=== PATIENT | female | born 1960 | race Caucasian/White ===

== ENCOUNTER 2021-08-28 10:27 | Outpatient (REF) | payer OTHER, SELFPAY ==
[2021-08-28 12:46] LABS: Alanine Aminotransferase 37 U/L (0-31); Albumin Level 4.6 g/dL (3.5-5.0); Alkaline Phosphatase 59 U/L (39-117); Anion Gap 12 (12-20); Aspartate Amino Transferase 26 U/L (5-31); Bilirubin Total 0.5 mg/dL (0.0-1.0); Blood Urea Nitrogen 16 mg/dL (9-16); Calcium 10.7 mg/dL (8.4-10.2); Carbon Dioxide 26 mmol/L (22-29); Chloride 105 mmol/L (96-108); Estimated Glomerular Filt Rate > 60; Glucose Random 144 mg/dL (60-115); Potassium 4.6 mmol/L (3.3-5.1); Sodium 138 mmol/L (135-145); Total Protein 7.1 g/dL (6.5-8.0)
[2021-08-28 13:12] LABS: Estimated Average Glucose 137 mg/dL; Hemoglobin A1c % 6.4 %
== END 2021-08-28 10:28 | disposition home or self-care (01) ==
LOC: HO.10HDL 10:27
PROVIDERS: Visit Provider Internal Medicine
DX: F41.8 Other specified anxiety disorders (principal); I10 Essential (primary) hypertension; K91.5 Postcholecystectomy syndrome; R73.01 Impaired fasting glucose
CPT/HCPCS: 36415; 80053; 83036

== ENCOUNTER 2021-09-18 07:06 | Day surgery (SDC) | payer OTHER, SELFPAY ==
[2021-09-12 13:50] VITALS: BMI 34.2
--- NOTE | 2021-09-15 08:51 | HO.ANESPROP2 ---
Documented by User: Ida Smith NP 09/15/21 08:53 HPI - Anesthesia Eval Consult details Narrative: 61yo F for Left Cataract Extraction IOL Insertion PCP cleared No previous cataract on record [facility] Past Medical History Medical History (Updated 09/18/21 @ 07:43 by Joan Espino, RN) Anxiety HTN (hypertension) Hx of lipoma Pre-diabetes Surgical History Surgical History Hx of cholecystectomy Hx of colonoscopy Hx of hand surgery Hx of removal of neck cyst Surgical history unknown Social History Social History Patient Tobacco Use Status: Tobacco use Unknown Advance Directives: No Advance Directives Information Provided: Yes (brochure mailed) Advance Directives on File: No Meds Allergies Allergy/AdvReac Type Severity Reaction Status Date / Time erythromycin base Allergy Rash Verified 09/18/21 07:43 Home Medications Medication Instructions Recorded Confirmed Last Taken Type cholestyramine (with sugar) 4 gram 1 packet PO BID 09/12/21 09/12/21 Unknown History powder for susp in a packet fluoxetine 10 mg capsule 1 cap PO DAILY 09/12/21 09/12/21 Unknown History losartan 100 mg tablet 1 tab PO DAILY 09/12/21 09/12/21 Unknown History Exam Exam Date and Time: September 15, 2021 0851 Height,Weight and Vital Signs: Height 5 ft 5 in Weight 93.44 kg Assessment and Plan Assessment Anesthesia Assessment: Chart Reviewed Documented by User: Cliff Prather MD 09/18/21 07:53 [facility] Past Medical History Medical History (Updated 09/18/21 @ 07:43 by Joan Espino RN) Anxiety HTN (hypertension) Hx of lipoma Pre-diabetes Family History Family history of problems with anesthesia: No Surgical History Surgical History Hx of cholecystectomy Hx of colonoscopy Hx of hand surgery Hx of removal of neck cyst Surgical history unknown History of Problems with Anesthesia: No Social History Social History Patient Tobacco Use Status: Tobacco use Unknown Advance Directives: No Advance Directives Information Provided: Yes (brochure mailed) Advance Directives on File: No Meds Allergies Allergy/AdvReac Type Severity Reaction Status Date / Time erythromycin base Allergy Rash Verified 09/18/21 07:43 Home Medications Medication Instructions Recorded Confirmed Last Taken Type cholestyramine (with sugar) 4 gram 1 packet PO BID 09/12/21 09/12/21 Unknown History powder for susp in a packet fluoxetine 10 mg capsule 1 cap PO DAILY 09/12/21 09/12/21 Unknown History losartan 100 mg tablet 1 tab PO DAILY 09/12/21 09/12/21 Unknown History Exam Airway Mallampati Class: II TM Dist: >3cm Neck ROM: Full Loose/Missing/Broken Teeth: No Heart: rrr +s1s2 Lungs: cta b/l Assessment and Plan Assessment Anesthesia Assessment: Anesthesia Plan Discussed Final Anesthetic Review Family History of Problems with Anesthesia: No History of Problems with Anesthesia: No NPO: Yes ASA Class: II Final Preanesthetic Review: No Changes in Pt Med Stat, Meds/Allgs Chart Reviewed, Consent Obtained/Reviewed and Anes Risks/Benef Reviewed Patient Risk: Intermediate Procedure Risk: Low Assessment/Block/Sedation in SS: Assess/Block/Sedation-SS Anesthetic Plan Anesthetic Plan: MAC: and Agree w/ Assess. and Plan Disposition: Standard PACU
--- NOTE | 2021-09-15 11:36 | MHC.SHP ---
Pre-Procedural Eval Section A Date of Service: 09/15/21 The patient is an INPATIENT: No Changes since office visit: No Cold of Flu in the past 2 weeks, No New Medical Problems, No Changes in Medication and No Patient answered all questions The History & Physical has been completed within 30 days and I have reviewed it.: Yes Section B Chief Complaint: cataract Allergies: Allergies Allergy/AdvReac Type Severity Reaction Status Date / Time No Known Allergies Allergy Verified 09/12/21 13:48 Plan Diagnosis/Plan: Unchanged I have reviewed the history and physical and performed a pertinent physical examination on my patient. No changes have occurred unless specified.
[2021-09-18 07:53] VITALS: BP 143/81; PULSE 78; RESP 16; TEMP 36.3; O2SAT 98
[2021-09-18] MEDS: Tetracaine HCl/PF 0.5% Oph Sol 4 ML DROPS 1 DROP EYE-LEFT (07:58)
[2021-09-18] MEDS: Tropicamide 1 % Ophth Sol 3 ML BTL 1 DROP EYE-LEFT ×3 (08:01→08:09)
[2021-09-18] MEDS: Phenylephrine HCL 2.5% Oph SoL 2 ML BOTTLE 1 DROP EYE-LEFT ×3 (08:03→08:11)
[2021-09-18] MEDS: Lactated Ringers 500 ML 50 ML IV (08:07)
--- NOTE | 2021-09-18 08:42 | HO.PNOPHT ---
Ophthalmology Procedure Procedure Date of Service: 09/18/21 Ophthalmology Viscoelastic: Healkirill Bucknert Dual Pack Pro Ophthalmology Lenses: TECRONIT [id number] (21.5) Procedure Notes: PREOPERATIVE DIAGNOSIS: Decreased visual acuity left eye secondary to cataract POSTOPERATIVE DIAGNOSIS: Same PROCEDURE: Left cataract extraction with intraocular lens insertion SURGEON: Efraín Tinajero M.D. ANESTHESIA: Topical/MAC ESTIMATED BLOOD LOSS: None COMPLICATIONS: None After obtaining informed consent, the patient was brought to the operation room suite and placed in the supine position. After adequate sedation per anesthesia, topical drops of Tetracaine were given to the left eye. The eye was then prepped and draped in the usual sterile fashion. The operating room microscope was then positioned over the operative eye and a lid speculum placed. A paracentesis was created. Viscoelastic was then instilled into the anterior chamber. A three plane incision was then created temporally, utilizing a 2.85 mm keratome. Capsulotomy forceps were then utilized to create a circular tear capsulotomy. Hydrodissection and hydrodelineation were carried out until adequate mobilization of the nucleus occurred. Phacoemulsification was then utilized to remove the dense central nucleus followed by removal of the cortical material utilizing the automated aspiration irrigation unit. Viscoat elastic was instilled into the posterior capsular bag followed by placement of a posterior chamber intraocular lens without difficulty. The residual Viscoat elastic was then removed utilizing the automated IA machine. The wound was check and found to be watertight. The patient tolerated the procedure well and the lid speculum was removed. Intracameral injection of Vigamox 0.1 mL followed by a subtenon injection of Kenalog-40 0.2 mL were administered. The patient will be seen in the a.m.
[2021-09-18 09:08] VITALS: BP 136/72; PULSE 81; RESP 18; TEMP 36.2; O2SAT 97
== END 2021-09-18 09:11 | disposition home or self-care (01) ==
PROVIDERS: PCP Internal Medicine; Visit Provider Ophthalmology
PROC: (CPT 66985; principal; 2021-09-18 08:50)
DX: H25.12 Age-related nuclear cataract, left eye (principal); H54.7 Unspecified visual loss; I10 Essential (primary) hypertension; F41.1 Generalized anxiety disorder; Z79.899 Other long term (current) drug therapy; Z88.1 Allergy status to other antibiotic agents
CPT/HCPCS: 66984; J2250; J3010; J3300; V2632

== ENCOUNTER 2021-10-09 06:20 | Day surgery (SDC) | payer OTHER, SELFPAY ==
[2021-09-12 13:52] VITALS: BMI 34.2
--- NOTE | 2021-10-05 08:00 | MHC.SHP ---
Pre-Procedural Eval Section A Date of Service: 10/05/21 The patient is an INPATIENT: No Changes since office visit: No Cold of Flu in the past 2 weeks, No New Medical Problems, No Changes in Medication and No Patient answered all questions The History & Physical has been completed within 30 days and I have reviewed it.: Yes Section B Chief Complaint: cataract Allergies: Allergies Allergy/AdvReac Type Severity Reaction Status Date / Time erythromycin base Allergy Rash Verified 09/18/21 07:43 Plan Diagnosis/Plan: Unchanged I have reviewed the history and physical and performed a pertinent physical examination on my patient. No changes have occurred unless specified.
--- NOTE | 2021-10-05 11:51 | P.CONAN_ITS ---
Documented by User: Ida Smith NP 10/05/21 11:51 HPI - Anesthesia Eval Consult details Narrative: 61yo F for Right Cataract Extraction IOL Insertion PCP cleared Left eye 09/2021 with MAC: fent 50, midaz 2 [facility] Past Medical History Medical History (Updated 09/18/21 @ 07:43 by Joan Espino, RN) Anxiety HTN (hypertension) Hx of lipoma Pre-diabetes Family History Family history of problems with anesthesia: No Surgical History Surgical History Hx of cholecystectomy Hx of colonoscopy Hx of hand surgery Hx of removal of neck cyst Surgical history unknown History of Problems with Anesthesia: No Social History Social History Patient Tobacco Use Status: Tobacco use Unknown Advance Directives: No Advance Directives Information Provided: Yes (brochure mailed) Advance Directives on File: No Meds Allergies Allergy/AdvReac Type Severity Reaction Status Date / Time erythromycin base Allergy Rash Verified 09/18/21 07:43 Home Medications Medication Instructions Recorded Confirmed Last Taken Type cholestyramine (with sugar) 4 gram 1 packet PO BID 09/12/21 09/12/21 Unknown History powder for susp in a packet fluoxetine 10 mg capsule 1 cap PO DAILY 09/12/21 09/12/21 09/18/21 05:45 History losartan 100 mg tablet 1 tab PO DAILY 09/12/21 09/12/21 Unknown History Exam Exam Date and Time: October 05, 2021 1151 Height,Weight and Vital Signs: Height 5 ft 5 in Weight 93.44 kg Assessment and Plan Assessment Anesthesia Assessment: Chart Reviewed Final Anesthetic Review Family History of Problems with Anesthesia: No History of Problems with Anesthesia: No Documented by User: Cliff Prather MD 10/08/21 11:59 [facility] Past Medical History Medical History (Updated 09/18/21 @ 07:43 by Joan Espino RN) Anxiety HTN (hypertension) Hx of lipoma Pre-diabetes Surgical History Surgical History Hx of cholecystectomy Hx of colonoscopy Hx of hand surgery Hx of removal of neck cyst Surgical history unknown Social History Social History Patient Tobacco Use Status: Tobacco use Unknown Advance Directives: No Advance Directives Information Provided: Yes (brochure mailed) Advance Directives on File: No Meds Allergies Allergy/AdvReac Type Severity Reaction Status Date / Time erythromycin base Allergy Rash Verified 09/18/21 07:43 Home Medications Medication Instructions Recorded Confirmed Last Taken Type cholestyramine (with sugar) 4 gram 1 packet PO BID 09/12/21 09/12/21 Unknown History powder for susp in a packet fluoxetine 10 mg capsule 1 cap PO DAILY 09/12/21 09/12/21 09/18/21 05:45 History losartan 100 mg tablet 1 tab PO DAILY 09/12/21 09/12/21 Unknown History Exam Airway Mallampati Class: II TM Dist: >3cm Neck ROM: Full Loose/Missing/Broken Teeth: No Heart: rrr+s1s2 Lungs: cta b/l Assessment and Plan Assessment Anesthesia Assessment: Anesthesia Plan Discussed Final Anesthetic Review NPO: Yes ASA Class: II Final Preanesthetic Review: No Changes in Pt Med Stat, Meds/Allgs Chart Reviewed, Consent Obtained/Reviewed and Anes Risks/Benef Reviewed Patient Risk: Intermediate Procedure Risk: Low Assessment/Block/Sedation in SS: Assess/Block/Sedation-SS Anesthetic Plan Anesthetic Plan: MAC: Disposition: Standard PACU
[2021-10-09 06:21] VITALS: BP 130/76; PULSE 86; RESP 16; TEMP 36.5; O2SAT 95
[2021-10-09] MEDS: Tetracaine HCl/PF 0.5% Oph Sol 4 ML DROPS 1 DROP EYE-RIGHT (06:35)
[2021-10-09] MEDS: Tropicamide 1 % Ophth Sol 3 ML BTL 1 DROP EYE-RIGHT ×3 (06:43→06:50)
[2021-10-09] MEDS: Lactated Ringers 500 ML 50 ML IV (06:43)
[2021-10-09] MEDS: Phenylephrine HCL 2.5% Oph SoL 2 ML BOTTLE 1 DROP EYE-RIGHT ×3 (06:46→06:53)
--- NOTE | 2021-10-09 07:46 | HO.PNOPHT ---
Ophthalmology Procedure Procedure Date of Service: 10/09/21 Ophthalmology Viscoelastic: Zuhair Bucknert Dual Pack Pro Ophthalmology Lenses: TECRONIT [id number] (21) Procedure Notes: PREOPERATIVE DIAGNOSIS: Decreased visual acuity right eye secondary to cataract POSTOPERATIVE DIAGNOSIS: Same PROCEDURE: Right cataract extraction with intraocular lens insertion SURGEON: Efraín Tinajero M.D. ANESTHESIA: Topical/MAC ESTIMATED BLOOD LOSS: None COMPLICATIONS: None After obtaining informed consent, the patient was brought to the operating room suite and placed in the supine position. After adequate sedation per anesthesia, topical drops of Tetracaine were given to the right eye. The eye was then prepped and draped in the usual sterile fashion. The operating room microscope was then positioned over the operative eye and a lid speculum placed. A paracentesis was created. Viscoelastic was then instilled into the anterior chamber. A three plane incision was then created temporally, utilizing a 2.85 mm keratome. Capsulotomy forceps were then utilized to create a circular tear capsulotomy. Hydrodissection and hydrodelineation were carried out until adequate mobilization of the nucleus occurred. Phacoemulsification was then utilized to remove the dense central nucleus followed by removal of the cortical material utilizing the automated aspiration irrigation unit. Viscoelastic was instilled into the posterior capsular bag followed by placement of a posterior chamber intraocular lens without difficulty. The residual Viscoelastic was then removed utilizing the automated IA machine. The wound was checked and found to be watertight. The patient tolerated the procedure well and the lid speculum was removed. Intracameral injection of Vigamox 0.1 mL followed by a subtenon injection of Kenalog-40 0.2 mL were administered. The patient will be seen in the a.m.
[2021-10-09 08:06] VITALS: BP 125/72; PULSE 88; RESP 16; TEMP 36.2; O2SAT 96
== END 2021-10-09 08:24 | disposition home or self-care (01) ==
PROVIDERS: PCP Internal Medicine; Visit Provider Ophthalmology
PROC: (CPT 66985; principal; 2021-10-09 08:00)
DX: H25.11 Age-related nuclear cataract, right eye (principal); H54.7 Unspecified visual loss; I10 Essential (primary) hypertension; Z79.899 Other long term (current) drug therapy; Z88.1 Allergy status to other antibiotic agents
CPT/HCPCS: 66984; J2250; J3010; J3300; V2632

== ENCOUNTER 2021-11-15 08:13 | Outpatient (REF) | payer OTHER, SELFPAY ==
[2021-11-15 10:18] LABS: MANUAL DIFF FLAG NO
[2021-11-15 10:24] LABS: Basophils Percent Auto 0.5 % (0-2); Eosinophils Absolute Auto 0.1 X10*3/uL (0.0-0.4); Eosinophils Percent Auto 1.1 % (0-4); Hematocrit 39.7 % (37.0-47.0); Hemoglobin 12.7 g/dl (12.0-16.0); Imm Gran Abs Auto 0.05 X10*3/uL (0.00-0.03); Imm Gran Pct Auto 0.7 % (0.0-0.4); Lymphocytes Absolute Auto 1.6 X10*3/uL (1.2-4.9); Mean Corpuscular Hemoglobin 29.3 pg (27.0-33.0); Mean Corpuscular Volume 91.7 fL (80.0-98.0); Mean Platelet Volume 9.2 fL (9.4-12.3); Monocytes Absolute Auto 0.6 X10*3/uL (0.1-1.2); Monocytes Percent Auto 8.3 % (2-11); Neutrophils Percent Auto 67.4 % (45-73); Platelet Count 218 X10*3/uL (160-400); Red Blood Count 4.33 X10*6/uL (4.20-5.50); Red Cell Distribution Width 13.2 % (11.0-16.0); White Blood Count 7.4 X10*3/uL (4.8-10.8)
[2021-11-15 10:46] LABS: Estimated Average Glucose 126 mg/dL
[2021-11-15 10:49] LABS: Alanine Aminotransferase 30 U/L (0-31); Albumin Level 4.4 g/dL (3.5-5.0); Alkaline Phosphatase 65 U/L (39-117); Anion Gap 14 (12-20); Aspartate Amino Transferase 19 U/L (5-31); Bilirubin Total 0.4 mg/dL (0.0-1.0); Blood Urea Nitrogen 17 mg/dL (9-16); Calcium 9.6 mg/dL (8.4-10.2); Carbon Dioxide 24 mmol/L (22-29); Chloride 109 mmol/L (96-108); Cholesterol 199 mg/dL; Estimated Glomerular Filt Rate > 60; Glucose Fasting 132 mg/dL (60-99); HDL Cholesterol 47 mg/dL; LDL Cholesterol Calculated 112 mg/dl; Potassium 4.6 mmol/L (3.3-5.1); Sodium 142 mmol/L (135-145); Total Protein 6.7 g/dL (6.5-8.0); Triglycerides 203 mg/dL
[2021-11-16 12:42] LABS: Calcium (PTHI) 9.4 mg/dL (8.6-10.4); PTHI 38 pg/mL (16-77)
== END 2021-11-15 08:14 | disposition home or self-care (01) ==
LOC: HO.10HDL 08:13
PROVIDERS: Absent Provider Internal Medicine; Visit Provider Internal Medicine
DX: E83.52 Hypercalcemia (principal); I10 Essential (primary) hypertension; K91.5 Postcholecystectomy syndrome; R73.01 Impaired fasting glucose
CPT/HCPCS: 36415; 80053; 80061; 82306; 83036; 83970; 85025

== ENCOUNTER 2022-02-09 09:00 | Outpatient (REF) | payer OTHER, SELFPAY ==
[2022-02-09 10:42] LABS: Estimated Average Glucose 123 mg/dL; Hemoglobin A1c % 5.9 %
[2022-02-09 10:51] LABS: Alanine Aminotransferase 38 U/L (0-31); Albumin Level 4.6 g/dL (3.5-5.0); Alkaline Phosphatase 55 U/L (39-117); Anion Gap 18 (12-20); Aspartate Amino Transferase 26 U/L (5-31); Bilirubin Total 0.4 mg/dL (0.0-1.0); Blood Urea Nitrogen 12 mg/dL (9-16); Carbon Dioxide 24 mmol/L (22-29); Chloride 106 mmol/L (96-108); Cholesterol 180 mg/dL; Estimated Glomerular Filt Rate > 60; Glucose Fasting 143 mg/dL (60-99); HDL Cholesterol 45 mg/dL; LDL Cholesterol Calculated 97 mg/dl; Potassium 4.6 mmol/L (3.3-5.1); Sodium 143 mmol/L (135-145); Total Protein 6.9 g/dL (6.5-8.0); Triglycerides 190 mg/dL
== END 2022-02-09 09:01 | disposition home or self-care (01) ==
LOC: HO.10HDL 09:00
PROVIDERS: Absent Provider Internal Medicine; Visit Provider Internal Medicine
DX: Z00.00 Encounter for general adult medical examination without abnormal findings (principal); E78.2 Mixed hyperlipidemia; F41.8 Other specified anxiety disorders; I10 Essential (primary) hypertension; R73.01 Impaired fasting glucose
CPT/HCPCS: 36415; 80053; 80061; 83036

== ENCOUNTER 2022-10-08 10:54 | Outpatient (REF) | payer OTHER, SELFPAY ==
[2022-10-08 11:23] VITALS: BP 120/66; PULSE 82; RESP 16; TEMP 36.8; O2SAT 96; BMI 29.2
== END 2022-10-08 10:55 | disposition home or self-care (01) ==
LOC: HO.MS 10:54
PROVIDERS: PCP Internal Medicine; Visit Provider Ophthalmology
PROC: (CPT 66821; principal; 2022-10-08 13:40)
DX: H26.492 Other secondary cataract, left eye (principal)
CPT/HCPCS: 66821